=== PATIENT | female | born 1985 | race Two or more races ===

== ENCOUNTER 2019-11-06 18:34 | Emergency (ER) | payer SELFPAY ==
[~2019-11-06] VITALS: Ht 165.1 cm; Wt 68.0 kg
[~2019-11-06 18:34] MED LIST: NO REPORTABLE MEDS
[2019-11-06] MEDS ORDERED: IV NS 0.9% 1,000 ML BAG IV ONE (19:00)
[2019-11-06] MEDS ORDERED: predniSONE 10 MG TABLET PO ONE (19:00)
[2019-11-06] MEDS ORDERED: diphenhydrAMINE HCL 50 MG/ML VIAL IV ONE (19:00)
[2019-11-06] MEDS ORDERED: FAMOTIDINE/PF INJ 20 MG/2 ML VIAL IV ONE ×2 (19:00→22:21)
--- NOTE | 2019-11-06 19:31 | NUR ---
PATIENT CAME TO ER BED 2 C/O ALLERGIC REACTION FOLLOWING EATING SHRIMP TODAY AT A NEW LOCATION. PATIENT IS ANXIOUS. PATIENT IS ABLE TO SWALLOW. PATIENT IS PATIENT IS AAOX4. NO SOB. BREATHING EVENLY AND UNLABORED ON ROOM AIR. CONNECTED TO MONITOR.
[2019-11-06] MEDS ORDERED: ONDANSETRON HCL/PF 4 MG/2 ML VIAL ONE (21:59)
[2019-11-06] MEDS ORDERED: MORPHINE SULFATE INJ 4 MG/ML DISP.SYRIN ONE (22:00)
--- NOTE | 2019-11-06 22:04 | NUR ---
IV removed. Catheter intact and site benign. Pressure and 4x4 applied to site. No bleeding noted.
--- NOTE | 2019-11-06 22:04 | NUR ---
Patient discharged to home in stable condition. Written and verbal after care instructions given. Patient verbalizes understanding of instruction.
[2019-11-06] MEDS ORDERED: diphenhydrAMINE HCL 50 MG/ML VIAL ONE (22:20)
[2019-11-06] MEDS ORDERED: predniSONE 20 MG TABLET ONE (22:20)
[2019-11-06 22:55] VITALS: BP 118/76
== END 2019-11-06 22:05 | disposition home or self-care (01) ==
LOC: ER 18:36
DX: T78.1XXA Other adverse food reactions, not elsewhere classified, initial encounter (principal); R00.0 Tachycardia, unspecified; F41.9 Anxiety disorder, unspecified; X58.XXXA Exposure to other specified factors, initial encounter
CPT/HCPCS: 96374; 96375; 99284; J1200; J3490; J7512; J2270; J2405